=== PATIENT | female | born 1985 | race Caucasian/White ===

== ENCOUNTER 2018-04-27 13:11 | Outpatient (CLI) | payer OTHER ==
[2018-04-27] MEDS ORDERED: LACTATED RINGERS 500 ML IV ONE (13:46)
[2018-04-27 14:09] VITALS: BP 111/66
[2018-04-27] MEDS: BRETHINE SUB-Q SCH ×3 (14:50→17:15)
[2018-04-27] MEDS ORDERED: LACTATED RINGERS 1,000 ML ONE (17:08)
== END 2018-04-27 18:40 | disposition home or self-care (01) ==
LOC: TRG 13:11
PROVIDERS: ATTEND Obstetrics & Gynecology
DX: O47.03 False labor before 37 completed weeks of gestation, third trimester (principal); Z3A.28 28 weeks gestation of pregnancy
CPT/HCPCS: 36415; 59025; 82731; 96360; 96361; 96372; J3105; J7120

== ENCOUNTER 2018-05-31 12:37 | Outpatient (CLI) | payer OTHER ==
[2018-05-31] MEDS ORDERED: LACTATED RINGERS 1,000 ML IV ONE (12:52)
[2018-05-31 14:31] VITALS: BP 116/69
== END 2018-05-31 14:51 | disposition home or self-care (01) ==
LOC: TRG 12:37
PROVIDERS: ATTEND Obstetrics & Gynecology
DX: O47.03 False labor before 37 completed weeks of gestation, third trimester (principal); Z3A.33 33 weeks gestation of pregnancy
CPT/HCPCS: 36415; 59025; 82731

== ENCOUNTER 2018-06-21 15:18 | Outpatient (CLI) | payer OTHER ==
[2018-06-21] MEDS ORDERED: CYTOTEC ONE (15:26)
[2018-06-21 17:07] VITALS: BP 138/77
[2018-06-21] MEDS ORDERED: LACTATED RINGERS 1,000 ML IV SCH (18:00)
[2018-06-21] MEDS ORDERED: LACTATED RINGERS 1,000 ML IV ONE (18:14)
--- NOTE | 2018-06-21 18:23 | Ultrasound Report ---
FINAL REPORT EXAM: US OB LIMITED HISTORY: DECREASED FM, MARIYA TECHNIQUE: Ultrasound obstetrical transabdominal PRIORS: None. FINDINGS: Single live intrauterine gestation present with heart rate 149 beats per minute Presentation is cephalic Amniotic fluid index is within normal limits 16.1 centimeters IMPRESSION: Single live intrauterine gestation in cephalic presentation Normal amniotic fluid index
--- NOTE | 2018-06-21 18:25 | Ultrasound Report ---
FINAL REPORT EXAM: US OB BPP WO NON-STRESS HISTORY: DECREASED FM, MARIYA TECHNIQUE: Ultrasound biophysical profile PRIORS: None. FINDINGS: Single live intrauterine gestation is present with heart rate of 149 beats per minute Biophysical profile was performed respiratory motion 2 Body movement 2 tone 2 Amniotic fluid volume 2 Total 06/21 Impression Normal biophysical profile 06/21
== END 2018-06-21 19:45 | disposition home or self-care (01) ==
LOC: TRG 15:18
PROVIDERS: ATTEND Obstetrics & Gynecology
DX: O47.03 False labor before 37 completed weeks of gestation, third trimester (principal); Z3A.36 36 weeks gestation of pregnancy
CPT/HCPCS: 59025; 76815; 76819; 96360; 96361; J7120

== ENCOUNTER 2019-11-19 18:58 | Emergency (ER) | payer SELFPAY ==
[2019-11-19] MEDS ORDERED: ASPIRIN 81 MG TAB CHEW PO ONE (19:58)
--- NOTE | 2019-11-19 20:04 | Emergency Department Report ---
ED Chest Pain HPI - General Stated Complaint: CHEST PAIN Time Seen by Provider: 11/19/19 19:53 - History of Present Illness Initial Comments: Patient is 34 years old female with no significant past medical history. Patient brought to the emergency for evaluation of sudden onset of left sided chest pain with no radiation. Patient described her pain as tightness. Family stated that pain started during emotional stress while she was talking to her family. Family stated that she had this episode 2 times before. Patient denied any fever or chills or cough. No shortness of breath. MD Complaint: chest pain -: Sudden, minutes(s) Onset: other (emotional stress) Pain Location: left chest Pain Radiation: none Severity: moderate Severity scale (0 -10): 4 Quality: tightness - Related Data Home Medications Medication Instructions Recorded Confirmed Last Taken Pnv No.95/Ferrous Fum/Folic AC 1 each PO DAILY 04/27/18 06/21/18 1 Day Ago [ Formula Tablet] ~04/26/18 Allergies Allergy/AdvReac Type Severity Reaction Status Date / Time No Known Allergies Allergy Verified 04/02/15 08:08 Heart Score - HEART Score History: Slightly suspicious EKG: Normal Age: < 45 Risk factors: No known risk factors Troponin: < normal limit HEART Score: 0 - Critical Actions Critical Actions: 0-3 pts:0.9-1.7%risk of adverse cardiac event.Candidate for d ischarge ED Review of Systems ROS: Stated complaint: CHEST PAIN Other details as noted in HPI Comment: All other systems reviewed and negative Constitutional: denies: chills, fever Respiratory: denies: cough, shortness of breath Cardiovascular: chest pain. denies: palpitations, dyspnea on exertion Gastrointestinal: denies: abdominal pain, nausea, vomiting Musculoskeletal: denies: back pain Neurological: denies: headache, weakness, numbness, paresthesias, confusion, abnormal gait ED Past Medical Hx - Past Medical History Hx Hypertension: No Hx Congestive Heart Failure: No Hx Diabetes: No Hx Deep Vein Thrombosis: No Hx Renal Disease: No Hx Sickle Cell Disease: No Hx Seizures: No Hx Asthma: No Hx COPD: No Hx HIV: No - Surgical History Additional Surgical History: - Social History Smoking Status: Never Smoker - Medications Home Medications: Home Medications Medication Instructions Recorded Confirmed Last Taken Type Pnv No.95/Ferrous Fum/Folic AC 1 each PO DAILY 04/27/18 06/21/18 1 Day Ago History [ Formula Tablet] ~04/26/18 ED Physical Exam - General General appearance: alert, in no apparent distress, anxious - Head Head exam: Present: atraumatic, normocephalic, normal inspection - Eye Eye exam: Present: normal appearance - ENT ENT exam: Present: normal exam, normal orophraynx, mucous membranes moist - Neck Neck exam: Present: normal inspection, full ROM. Absent: tenderness, meningismus, lymphadenopathy, thyromegaly - Respiratory Respiratory exam: Present: normal lung sounds bilaterally - Cardiovascular Cardiovascular Exam: Present: regular rate, normal rhythm, normal heart sounds - GI/Abdominal GI/Abdominal exam: Present: soft, normal bowel sounds. Absent: distended, ten derness, guarding, rebound, rigid, diminished bowel sounds, organomegaly, mass, bruit, pulsatile mass, hernia - Extremities Exam Extremities exam: Present: normal inspection, full ROM, normal capillary refill. Absent: tenderness, pedal edema, joint swelling, calf tenderness - Back Exam Back exam: Present: normal inspection, full ROM. Absent: CVA tenderness (R), CVA tenderness (L), muscle spasm, paraspinal tenderness, vertebral tenderness - Neurological Exam Neurological exam: Present: alert, oriented X3, CN II-XII intact, normal gait, reflexes normal. Absent: motor sensory deficit - Psychiatric Psychiatric exam: Present: normal mood - Skin Skin exam: Present: warm, intact, normal color ED Course Vital Signs 11/19/19 21:14 Temperature 98.2 F Pulse Rate 75 Respiratory 12 Rate Blood Pressure 118/79 [Left] O2 Sat by Pulse 96 Oximetry ED Medical Decision Making - Lab Data Result diagrams: 11/19/19 20:18 11/19/19 20:18 - EKG Data -: EKG Interpreted by Sd EKG shows normal: sinus rhythm Rate: normal - EKG Data Interpretation: no acute changes - Radiology Data Radiology results: report reviewed - Medical Decision Making Patient is 34 years old female with no significant past medical history. Patient brought to the emergency for evaluation of sudden onset of left sided chest pain with no radiation. Patient described her pain as tightness. Family stated that pain started during emotional stress while she was talking to her family. Family stated that she had this episode 2 times before. Patient denied any fever or chills or cough. No shortness of breath. Patient stated that chest pain is completely resolved. EKG is unremarkable. Chest x-ray is negative for acute finding. Labs reviewed and is unremarkable including a negative troponin. Patient symptoms is most likely related to an anxiety and panic attack. Patient advised to follow-up with her primary care physician in the next 2-3 days and to return to the ER if symptoms are not improved Critical care attestation.: If time is entered above; I have spent that time in minutes in the direct care of this critically ill patient, excluding procedure time. ED Disposition Clinical Impression: Chest pain Disposition: DC-01 TO HOME OR SELFCARE Is pt being admited?: No Condition: Stable Instructions: Chest Pain (ED) Referrals: [facility] [Provider Group] - 3-5 Days
[2019-11-19 20:54] LABS: Basophils % (Auto) 0.2 % (0.0-1.8); Eosinophils # (Auto) 0.2 K/mm3 (0.0-0.4); Eosinophils % (Auto) 1.7 % (0.0-4.3); Hematocrit 37.6 % (30.3-42.9); Hemoglobin 12.8 gm/dl (10.1-14.3); Lymphocytes % (Auto) 21.3 % (13.4-35.0); Mean Corpuscular HGB Conc 34 % (30-34); Mean Corpuscular Volume 85 fl (79-97); Monocytes # (Auto) 0.8 K/mm3 (0.0-0.8); Monocytes % (Auto) 8.2 % (0.0-7.3); Platelet Count 243 K/mm3 (140-440); Red Blood Count 4.44 M/mm3 (3.65-5.03); Red Cell Distribution Width 13.8 % (13.2-15.2)
[2019-11-19 21:19] LABS: BUN/Creatinine Ratio 18; Blood Urea Nitrogen 11 mg/dL (7-17); Calcium 9.7 mg/dL (8.4-10.2); Hemolysis Index 4
--- NOTE | 2019-11-19 22:22 | XRay Report ---
CHEST 1 VIEW 9:34 PM INDICATION / CLINICAL INFORMATION: Chest Pain. COMPARISON: None available. FINDINGS: SUPPORT DEVICES: None. HEART / MEDIASTINUM: The heart size and pulmonary vasculature are normal. The aorta is normal in clau [place]. LUNGS / PLEURA: There is mild bibasilar subsegmental atelectasis. No pneumothorax. ADDITIONAL FINDINGS: No significant additional findings. IMPRESSION: Mild bibasilar subsegmental atelectasis. Signer Name: Bentley Moran MD Signed: 11/19/2019 10:17 PM Workstation Name: [id number]
[2019-11-19 23:05] VITALS: BP 133/77
== END 2019-11-19 23:03 | disposition home or self-care (01) ==
LOC: ED 18:58
DX: R07.89 Other chest pain (principal); Z79.899 Other long term (current) drug therapy
CPT/HCPCS: 36415; 71045; 80048; 84484; 84703; 85025; 93005; 93010